=== PATIENT | male | born 1960 | race Caucasian/White ===

== ENCOUNTER → 2025-07-29 14:40 | Outpatient (CLI) | payer MEDICARE, MEDICAID, SELFPAY | LOC: RESP 14:41 | PROVIDERS: PCP Registered Nurse; Referring Provider Registered Nurse; Visit Provider Student in an Organized Health Care Education/Training Program | DX: R05.3 Chronic cough (principal); Z87.891 Personal history of nicotine dependence | CPT/HCPCS: 94060; 94726; 94729 ==

== ENCOUNTER → 2025-08-27 12:39 | Outpatient (CLI) | payer MEDICARE, MEDICAID, SELFPAY ==
--- NOTE | 2025-08-27 12:40 | DI.CT.S_ITS ---
PROCEDURE: CT CHEST WO CON INDICATIONS: chronic cough, hx of hemothorax TECHNIQUE: Noncontrast 5 mm thick sections acquired from the pulmonary apices to the posterior costophrenic angles. 1 mm lung window, 5 mm thick coronal and sagittal and 7 mm axial MIP reformats were then acquired. For radiation dose reduction, the following was used: automated exposure control, adjustment of mA and/or kV according to patient size. COMPARISON: None. FINDINGS: Image quality: Diagnostic. Lower Neck: No enlarged lymph nodes. Thyroid: No thyroid nodules which require sonographic follow up, per consensus guidelines. Axillae: No enlarged lymph nodes. Chest Wall: Unremarkable. Bones: Multiple old healed right posterior rib fractures. No acute fracture or pneumothorax. Mild degenerative disc disease in the dorsal spine without fracture or malalignment. Lungs and Pleura: No pneumothorax or pleural effusions. No consolidation or suspicious nodules. Heart: Heart size is normal. No pericardial effusion. Thoracic Vessels: The aorta and pulmonary arteries demonstrate normal size. Mediastinum and Zohreh: No enlarged lymph nodes. Esophagus: No wall thickening. No hiatal hernia. Upper Abdomen: Partially imaged colonic diverticulosis without evidence of diverticulitis IMPRESSION: No acute findings. No focal infiltrate or mass lesion. Old healed right posterior multilevel rib fractures. Colonic diverticulosis without visualized diverticulitis. Approved by: Grabiel Newell M.D. on 08/27/2025 at 12:46
== END ==
LOC: CT 12:40
PROVIDERS: PCP Registered Nurse; Referring Provider Student in an Organized Health Care Education/Training Program; Visit Provider Student in an Organized Health Care Education/Training Program
DX: R05.9 Cough, unspecified (principal); K57.90 Diverticulosis of intestine, part unspecified, without perforation or abscess without bleeding; Z87.81 Personal history of (healed) traumatic fracture
CPT/HCPCS: 71250